=== PATIENT | male | born 1995 | race Two or more races ===

== ENCOUNTER 2019-12-04 08:40 | Outpatient (RCR) | payer OTHER | END 2019-12-16 | disposition home or self-care (01) | LOC: WCC 08:40 | DX: T81.31XA Disruption of external operation (surgical) wound, not elsewhere classified, initial encounter (principal); L97.822 Non-pressure chronic ulcer of other part of left lower leg with fat layer exposed; X58.XXXA Exposure to other specified factors, initial encounter; Y92.9 Unspecified place or not applicable | CPT/HCPCS: 11042; 15271; G0463; Q4133 ==

== ENCOUNTER 2019-12-18 08:40 | Outpatient (RCR) | payer OTHER | END 2020-01-16 | disposition home or self-care (01) | LOC: WCC 08:40 | DX: T81.31XA Disruption of external operation (surgical) wound, not elsewhere classified, initial encounter (principal); L97.822 Non-pressure chronic ulcer of other part of left lower leg with fat layer exposed; X58.XXXA Exposure to other specified factors, initial encounter; Y92.9 Unspecified place or not applicable ==